=== PATIENT | female | born 1975 | race Caucasian/White ===

== ENCOUNTER → 2019-10-02 | Outpatient (CLI) | payer OTHER | LOC: MC.RAD 08:00 | DX: Z12.31 Encounter for screening mammogram for malignant neoplasm of breast (principal); Z98.82 Breast implant status ==

== ENCOUNTER → 2020-04-05 | Outpatient (CLI) | payer OTHER | LOC: ZCOL.LAB 14:39 | DX: Z20.828 Contact with and (suspected) exposure to other viral communicable diseases (principal) ==